=== PATIENT | female | born 1995 | race Hispanic/Latino ===

== ENCOUNTER 2017-08-29 21:42 | Emergency (ER) | payer MEDICAID ==
[2017-08-29] MEDS ORDERED: ACETAMINOPHEN 325 MG TAB ONE (22:16)
[2017-08-29] MEDS ORDERED: ONDANSETRON ODT 4 MG TAB ONE (22:16)
[2017-08-29 22:27] LABS: APPEARANCE,URINE Clear (CLEAR); BILIRUBIN,URINE Negative (NEGATIVE); COLOR,URINE Yellow (YELLOW); GLUCOSE, URINE (UA) Negative (NEGATIVE); KETONES,URINE Negative (NEGATIVE); LEUKOCYTE ESTERASE ,URINE Trace (NEGATIVE); NITRATE,URINE Negative (NEGATIVE); OCCULT BLOOD,URINE Negative (NEGATIVE); PROTEIN,URINE Negative (NEGATIVE); UROBILINOGEN,URINE 0.2 mg/dL (0.2-1.0)
[2017-08-29 22:38] LABS: BACTERIA,URINE None Seen /HPF (None Seen); MUCUS,URINE None Seen LPF (None Seen); RBC,URINE None Seen /HPF (0-1); SQUAMOUS EPITHELIAL CELL,UR None Seen /LPF (0-2); WBC,URINE 0-1 /HPF (0-1)
[2017-08-29 22:51] LABS: RAPID GROUP A STREP NEGATIVE (NEGATIVE)
[2017-08-29] MEDS ORDERED: SODIUM CHLORIDE 0.9% 1000ML 1,000 ML IV ONE (23:10)
[2017-08-29 23:15] LABS: BASOPHILS % (AUTO) 0.5 % (0.0-5.0); EOSINOPHILS % (AUTO) 3.9 % (0.0-8.0); HEMATOCRIT 34.1 % (36-48); LYMPHOCYTES % (AUTO) 19.3 % (21.0-51.0); MEAN CORPUSCULAR HEMOGLOBIN 31.8 pg (27.0-33.0); MEAN CORPUSCULAR VOLUME 90.9 fL (79-99); MONOCYTES % (AUTO) 6.8 % (3.0-13.0); NEUTROPHILS % (AUTO) 69.5 % (40.0-77.0); PLATELET COUNT (AUTO) 215 K/uL (130-400); RED BLOOD CELL COUNT(AUTO) 3.75 MIL/uL (4.00-5.50); RED CELL DISTRIBUTION WIDTH 13.1 % (11.0-15.5); WHITE BLOOD COUNT (AUTO) 10.1 K/uL (4.8-10.8)
[2017-08-29 23:33] LABS: CREATININE 0.5 mg/dL (0.5-1.5); POTASSIUM 3.2 mmol/L (3.5-5.1)
[2017-08-29] MEDS ORDERED: POTASSIUM BICARB/CIT AC 25 MEQ TABLET.EFF ONE (23:50)
== END 2017-08-30 00:40 | disposition home or self-care (01) ==
LOC: EDH 21:42
DX: O26.892 Other specified pregnancy related conditions, second trimester (principal); B34.9 Viral infection, unspecified; E87.6 Hypokalemia; Z3A.18 18 weeks gestation of pregnancy
CPT/HCPCS: 36415; 80048; 81001; 85025; 87804 ×2; 87880; 96360; 99282; 99284; J7030; 96361

== ENCOUNTER 2017-08-30 20:40 | Emergency (ER) | payer MEDICAID | END 2017-08-30 21:44 | disposition home or self-care (01) | LOC: EDH 20:40 | DX: O99.512 Diseases of the respiratory system complicating pregnancy, second trimester (principal); J06.9 Acute upper respiratory infection, unspecified; Z3A.18 18 weeks gestation of pregnancy ==

== ENCOUNTER 2017-09-24 14:26 | Observation (INO) | payer MEDICAID ==
[2017-09-24 15:08] LABS: APPEARANCE,URINE Cloudy (CLEAR); BILIRUBIN,URINE Negative (NEGATIVE); COLOR,URINE Yellow (YELLOW); GLUCOSE, URINE (UA) Negative (NEGATIVE); KETONES,URINE Negative (NEGATIVE); LEUKOCYTE ESTERASE ,URINE Trace (NEGATIVE); NITRATE,URINE Negative (NEGATIVE); OCCULT BLOOD,URINE Large (NEGATIVE); PROTEIN,URINE Negative (NEGATIVE); UROBILINOGEN,URINE 0.2 mg/dL (0.2-1.0)
[2017-09-24] MEDS ORDERED: LACTATED RINGERS 1000ML IV SCH (15:30)
[2017-09-24 15:35] LABS: AMORPHOUS SEDIMENT,UR Few /LPF (None Seen); BACTERIA,URINE Few /HPF (None Seen); MUCUS,URINE Few LPF (None Seen)
[2017-09-24 15:36] LABS: RBC,URINE None Seen /HPF (0-1)
[2017-09-24] MEDS ORDERED: LACTATED RINGERS 1000ML 1,000 ML IV SCH (15:45)
== END 2017-09-24 16:55 | disposition home or self-care (01) ==
LOC: EDH 14:26 → LDH 14:27
PROVIDERS: ADMIT Obstetrics & Gynecology; ATTEND Obstetrics & Gynecology
DX: O26.892 Other specified pregnancy related conditions, second trimester (principal); M54.9 Dorsalgia, unspecified; O46.92 Antepartum hemorrhage, unspecified, second trimester; Z3A.22 22 weeks gestation of pregnancy
CPT/HCPCS: 81001; 99285; G0378 ×2; J7120; 96360

== ENCOUNTER 2017-10-20 23:27 | Inpatient (IN) | payer MEDICAID ==
[~2017-10-20] VITALS: Ht 154.9 cm; Wt 78.9 kg
[2017-10-21 00:16] LABS: APPEARANCE,URINE Clear (CLEAR); BILIRUBIN,URINE Negative (NEGATIVE); COLOR,URINE Yellow (YELLOW); GLUCOSE, URINE (UA) Negative (NEGATIVE); KETONES,URINE Negative (NEGATIVE); LEUKOCYTE ESTERASE ,URINE Negative (NEGATIVE); NITRATE,URINE Negative (NEGATIVE); OCCULT BLOOD,URINE Negative (NEGATIVE); PROTEIN,URINE Negative (NEGATIVE)
[2017-10-21] MEDS ORDERED: LACTATED RINGERS 1000ML 1,000 ML IV ONE ×2 (00:27→08:04)
[2017-10-21] MEDS ORDERED: AMPICILLIN 2GM+NS 100ML 100 ML IV ONE (00:27)
[2017-10-21] MEDS ORDERED: CELESTONE SOLUSPAN 6 MG/ML 5ML VIAL ONE (00:27)
[2017-10-21] MEDS ORDERED: MAGNESIUM 4GM PREMIX 100ML 100 ML IV ONE (00:27)
[2017-10-21] MEDS ORDERED: MAGNESIUM SULFATE 1,000 ML IV ONE (00:28)
[2017-10-21] MEDS ORDERED: MAGNESIUM SULFATE 1,000 ML IV SCH (00:45)
[2017-10-21] MEDS ORDERED: MAGNESIUM SULFATE 1,000 ML IV STA (00:45)
[2017-10-21] MEDS ORDERED: PHARMACY COMMUNICATION MISC SCH ×2 (00:45→01:30)
[2017-10-21] MEDS ORDERED: MAGNESIUM 4GM PREMIX 100ML 100 ML IV SCH ×2 (01:15→03:15)
[2017-10-21] MEDS ORDERED: AMPICILLIN 2GM+NS 100ML 100 ML IV SCH (01:15)
[2017-10-21] MEDS ORDERED: CALCIUM GLUCONATE 1 GM/10 ML VIAL IV PRN ×2 (01:15→03:15)
[2017-10-21] MEDS: LACTATED RINGERS 1000ML 1,000 ML IV PRN ×2 (01:52→01:54)
[2017-10-21] MEDS ORDERED: CELESTONE SOLUSPAN 6 MG/ML 5ML VIAL IM SCH (02:00)
[2017-10-21] MEDS ORDERED: LACTATED RINGERS 1000ML 1,000 ML IV PRN (03:04)
[2017-10-21 03:30] LABS: AMPHET/METH SCREEN,URINE NEGATIVE (NEGATIVE); BARBITURATE SCREEN, URINE NEGATIVE (NEGATIVE); BENZODIAZEPINES SCREEN,URINE NEGATIVE (NEGATIVE); CANNABINOID SCREEN,URINE NEGATIVE (NEGATIVE); COCAINE SCREEN,URINE NEGATIVE (NEGATIVE); OPIATE SCREEN,URINE NEGATIVE (NEGATIVE); PHENCYCLIDINE SCREEN,URINE NEGATIVE (NEGATIVE)
[2017-10-21 04:56] LABS: HEMATOCRIT 30.3 % (36-48); MEAN CORPUSCULAR HEMOGLOBIN 32.3 pg (27.0-33.0); MEAN CORPUSCULAR HGB CONC 34.8 g/dL (32.0-36.0); PLATELET COUNT (AUTO) 237 K/uL (130-400); RED BLOOD CELL COUNT(AUTO) 3.26 MIL/uL (4.00-5.50); RED CELL DISTRIBUTION WIDTH 12.7 % (11.0-15.5); WHITE BLOOD COUNT (AUTO) 16.4 K/uL (4.8-10.8)
[2017-10-21] MEDS ORDERED: BERACTANT 100MG/4ML IH ONE (05:23)
[2017-10-21] MEDS: CELESTONE SOLUSPAN 6 MG/ML 5ML VIAL IM SCH ×2 (06:00→18:00)
[2017-10-21] MEDS ORDERED: MIDAZOLAM HCL 1 MG/ML 2ML VIAL ONE ×2 (06:33→06:57)
[2017-10-21] MEDS ORDERED: ROCURONIUM 10MG/1ML SYR 10 MG/ML ML ONE (06:33)
[2017-10-21] MEDS ORDERED: PROPOFOL 10 MG/ML 20ML VIAL IV ONE (06:33)
[2017-10-21] MEDS ORDERED: DEXAMETHASONE SOD PHOSPHATE 10MG/ML 1ML VIAL ONE ×2 (06:33→07:35)
[2017-10-21] MEDS ORDERED: LIDOCAINE PF 2% 5ML ABBOJECT ONE (06:33)
[2017-10-21] MEDS ORDERED: GLYCOPYRROLATE 0.2 MG/ML 5 ML VIAL ONE (06:33)
[2017-10-21] MEDS ORDERED: NEOSTIGMINE 5MG/5ML SYR IV ONE (06:33)
[2017-10-21] MEDS ORDERED: FENTANYL CITRATE PF 50 MCG/1 ML 2ML VIAL ONE ×3 (06:33→07:34)
[2017-10-21] MEDS ORDERED: ONDANSETRON HCL 4 MG/2 ML VIAL ONE ×2 (06:33→07:35)
[2017-10-21] MEDS ORDERED: SUCCINYLCHOLINE 200MG/10ML SYR ONE (06:33)
[2017-10-21] MEDS ORDERED: CEFAZOLIN SODIUM 1 GM VIAL ONE (06:37)
[2017-10-21] MEDS ORDERED: CEFAZOLIN SODIUM 1 GM VIAL IVP PRN (06:45)
[2017-10-21] MEDS ORDERED: LACTATED RINGERS 1000ML 1,000 ML IV SCH (06:45)
[2017-10-21] MEDS ORDERED: OXYTOCIN 10 UNIT/1ML 10ML VIAL ONE (07:35)
[2017-10-21] MEDS ORDERED: OXYTOCIN 10 USP UNITS/ML ONE ×2 (08:05→11:15)
[2017-10-21] MEDS ORDERED: CALDOLOR 800MG+NS 250ML 250 ML IV ONE ×2 (08:22→16:03)
[2017-10-21] MEDS ORDERED: PROMETHAZINE HCL 25 MG/ML 1ML AMPULE IM ONE (08:23)
[2017-10-21] MEDS ORDERED: MEPERIDINE-PF 25 MG/ML SYG ONE (08:24)
[2017-10-21 09:55] VITALS: BP 116/68
[2017-10-21] MEDS ORDERED: HEPARIN SOD 1000 UNIT/ML IV ONE (10:00)
[2017-10-21] MEDS ORDERED: SODIUM CHLORIDE 0.9% 50 ML IV ONE (10:00)
[2017-10-21] MEDS ORDERED: PNV1TABL17 PO (10:26)
[2017-10-21] MEDS ORDERED: OXYTOCIN-LR 20 UNITS/1000 ML 1,000 ML IV PRN (10:59)
[2017-10-21] MEDS ORDERED: SODIUM CHLORIDE 0.9% 10 ML VIAL IVP PRN (11:00)
[2017-10-21 11:30] VITALS: BP 117/73
[2017-10-21] MEDS ORDERED: DiphenhydrAMINE HCL 50 MG/ML VIAL IVP PRN (11:45)
[2017-10-21] MEDS ORDERED: METOCLOPRAMIDE 10 MG/2 ML VIAL IVP PRN (11:45)
[2017-10-21] MEDS ORDERED: PROMETHAZINE HCL 25 MG/ML 1ML AMPULE IM PRN (11:45)
[2017-10-21] MEDS ORDERED: ONDANSETRON HCL 4 MG/2 ML VIAL IVP PRN ×2 (11:45)
[2017-10-21] MEDS ORDERED: ONDANSETRON HCL 4 MG/2 ML 8 MG in SODIUM CHLORIDE 0.9% 50 ML IVP NR (11:45)
[2017-10-21] MEDS ORDERED: EPHEDRINE SULFATE 50 MG/ML AMPULE IVP PRN (11:45)
[2017-10-21] MEDS ORDERED: HYDROCODONE/ACETAMINOPHEN 5/325 MG TAB PO PRN ×2 (11:45)
[2017-10-21] MEDS ORDERED: MORPHINE SULFATE 2 MG/ML 1ML SYG IVP PRN (11:45)
[2017-10-21] MEDS ORDERED: NALOXONE HCL 0.4 MG/1 ML ML IVP PRN ×2 (11:45)
[2017-10-21] MEDS: MEPERIDINE-PF 75 MG/ML SYG IM PRN ×2 (12:13→20:06)
[2017-10-21] MEDS: PROMETHAZINE HCL 25 MG/ML 1ML AMPULE IM PRN ×2 (12:13→20:06)
[2017-10-21 14:20] LABS: RAPID PLASMA REAGIN NONREACTIVE (NONREACTIVE)
[2017-10-21 15:47] VITALS: BP 110/69
[2017-10-21] MEDS: CALDOLOR 800MG+NS 250ML 250 ML IV SCH (16:23)
[2017-10-21] MEDS: AMPICILLIN 2GM+NS 100ML 100 ML IV SCH (18:45)
[2017-10-21 19:39] VITALS: BP 110/63
[2017-10-21] MEDS: DEXTROSE 5 %-0.45 % NACL 1,000 ML IV PRN (20:06)
[2017-10-21 23:33] VITALS: BP 115/75
[2017-10-22] VITALS (7 sets, daily range): BP systolic 101–123; BP diastolic 56–79
[2017-10-22] MEDS: CALDOLOR 800MG+NS 250ML 250 ML IV SCH (01:15)
[2017-10-22] MEDS: DEXTROSE 5 %-0.45 % NACL 1,000 ML IV PRN ×2 (04:34→11:29)
[2017-10-22] MEDS: PROMETHAZINE HCL 25 MG/ML 1ML AMPULE IM PRN (04:47)
[2017-10-22] MEDS: MEPERIDINE-PF 75 MG/ML SYG IM PRN (04:48)
[2017-10-22 06:15] LABS: HEPATITIS Bs ANTIGEN SCREEN P Negative (Negative)
[2017-10-22 06:59] LABS: HEMATOCRIT 22.2 % (36-48); MEAN CORPUSCULAR HEMOGLOBIN 33.4 pg (27.0-33.0); MEAN CORPUSCULAR HGB CONC 35.5 g/dL (32.0-36.0); MEAN CORPUSCULAR VOLUME 94.2 fL (79-99); PLATELET COUNT (AUTO) 211 K/uL (130-400); RED BLOOD CELL COUNT(AUTO) 2.35 MIL/uL (4.00-5.50); RED CELL DISTRIBUTION WIDTH 12.9 % (11.0-15.5); WHITE BLOOD COUNT (AUTO) 16.3 K/uL (4.8-10.8)
[2017-10-22] MEDS ORDERED: HYDROCODONE/ACETAMINOPHEN 5/325 MG TAB PO PRN (08:30)
[2017-10-22] MEDS ORDERED: MEASLES/MUMPS/RUBELLA VACCINE, LIVE 0.5 ML/VIAL SQ SCH (08:30)
[2017-10-22] MEDS ORDERED: DIPHENHYDRAMINE HCL 25 MG CAPSULE PO PRN (08:30)
[2017-10-22] MEDS ORDERED: LANOLIN 30GM OINTMENT TP PRN (08:30)
[2017-10-22] MEDS ORDERED: DIPH,PERTUSS(ACELL),TET VAC/PF 0.5 ML VIAL IM SCH (08:30)
[2017-10-22] MEDS ORDERED: ACETAMINOPHEN EXTRA STRENGTH 500 MG TABLET PO PRN (08:30)
[2017-10-22] MEDS ORDERED: IBUPROFEN 800 MG TAB ONE (08:38)
[2017-10-22] MEDS: DOCUSATE SODIUM 100 MG CAP PO SCH ×2 (08:44→21:20)
[2017-10-22] MEDS: SIMETHICONE 80 MG TAB.CHEW PO PRN ×4 (08:45→21:20)
[2017-10-22] MEDS: IBUPROFEN 800 MG TAB PO SCH ×2 (08:46→17:39)
[2017-10-22] MEDS: ACETAMINOPHEN-CODEINE 300/30MG TAB PO PRN ×3 (08:49→21:20)
[2017-10-22] MEDS: AMPICILLIN 2GM+NS 100ML 100 ML IV SCH (12:45)
[2017-10-22] MEDS: BISACODYL 10 MG SUPP.RECT RC PRN (13:31)
[2017-10-23 03:09] VITALS: BP 113/74
[2017-10-23] MEDS: IBUPROFEN 800 MG TAB PO SCH ×2 (03:11→11:11)
[2017-10-23] MEDS: BISACODYL 10 MG SUPP.RECT RC PRN (03:17)
[2017-10-23 07:32] VITALS: BP 112/69
[2017-10-23] MEDS: DOCUSATE SODIUM 100 MG CAP PO SCH (08:51)
[2017-10-23] MEDS: SIMETHICONE 80 MG TAB.CHEW PO PRN (08:51)
[2017-10-23] MEDS: ACETAMINOPHEN-CODEINE 300/30MG TAB PO PRN (08:51)
[2017-10-23 11:20] VITALS: BP 120/77
[2017-10-23 15:35] VITALS: BP 118/77
== END 2017-10-23 17:40 | disposition home or self-care (01) | DRG 540 ==
LOC: EDH 23:27 → OBSVTOIN 10-21 00:02 → LDH 10-21 00:02 → WSH 10-21 09:54
PROVIDERS: ADMIT Obstetrics & Gynecology; ATTEND Obstetrics & Gynecology
PROC: 3E0234Z Introduction of Serum, Toxoid and Vaccine into Muscle, Percutaneous Approach (ICD-10-PCS; 2017-10-21)
PROC: 3E0134Z Introduction of Serum, Toxoid and Vaccine into Subcutaneous Tissue, Percutaneous Approach (ICD-10-PCS; 2017-10-21)
PROC: 10D00Z0 Extraction of Products of Conception, High, Open Approach (ICD-10-PCS; principal; 2017-10-21 06:50)
DX: O32.8XX0 Maternal care for other malpresentation of fetus, not applicable or unspecified (principal); O60.12X0 Preterm labor second trimester with preterm delivery second trimester, not applicable or unspecified; Z37.0 Single live birth; Z3A.25 25 weeks gestation of pregnancy
CPT/HCPCS: 36415; 59510; 76805; 80305; 81003; 83735; 85027; 86592; 86701; 86850; 86900; 86901; 87070; 87076; 87077; 87340; 87390; 90707; 90715; A4344; A4450; A4606; J0290; J0330; J0690; J0702; J1100; J1644; J1741; J2001; J2175; J2250; J2405; J2550; J2590; J2704; J2710; J3010; J3475; J3490; J7120

== ENCOUNTER 2017-11-04 06:21 | Emergency (ER) | payer MEDICAID ==
[~2017-11-04 06:21] MED LIST: PNV1TABL17 PO
[2017-11-04 06:58] LABS: BASOPHILS % (AUTO) 1.5 % (0.0-5.0); EOSINOPHILS % (AUTO) 1.1 % (0.0-8.0); LYMPHOCYTES % (AUTO) 27.8 % (21.0-51.0); MEAN CORPUSCULAR HEMOGLOBIN 30.8 pg (27.0-33.0); MEAN CORPUSCULAR HGB CONC 33.8 g/dL (32.0-36.0); MEAN CORPUSCULAR VOLUME 91.2 fL (79-99); MONOCYTES % (AUTO) 4.4 % (3.0-13.0); NEUTROPHILS % (AUTO) 65.2 % (40.0-77.0); PLATELET COUNT (AUTO) 523 K/uL (130-400); RED BLOOD CELL COUNT(AUTO) 3.19 MIL/uL (4.00-5.50); RED CELL DISTRIBUTION WIDTH 13.1 % (11.0-15.5)
[2017-11-04] MEDS ORDERED: ONDANSETRON HCL MDV 20ML 2 MG/ML VIAL ONE (07:18)
[2017-11-04 07:20] LABS: CREATININE 0.6 mg/dL (0.5-1.5); POTASSIUM 3.7 mmol/L (3.5-5.1)
[2017-11-04 07:27] LABS: BILIRUBIN,TOTAL 0.5 mg/dL (0.2-1.0)
[2017-11-04 08:01] LABS: HCG,QUAL RESULT NEGATIVE (NEGATIVE)
[2017-11-04 08:05] LABS: AMPHET/METH SCREEN,URINE NEGATIVE (NEGATIVE); BARBITURATE SCREEN, URINE NEGATIVE (NEGATIVE); BENZODIAZEPINES SCREEN,URINE NEGATIVE (NEGATIVE); CANNABINOID SCREEN,URINE NEGATIVE (NEGATIVE); COCAINE SCREEN,URINE NEGATIVE (NEGATIVE); OPIATE SCREEN,URINE NEGATIVE (NEGATIVE); PHENCYCLIDINE SCREEN,URINE NEGATIVE (NEGATIVE)
[2017-11-04 08:23] LABS: APPEARANCE,URINE CLEAR (CLEAR); BILIRUBIN,URINE NEGATIVE (NEGATIVE); COLOR,URINE YELLOW (YELLOW); GLUCOSE, URINE (UA) NEGATIVE (NEGATIVE); KETONES,URINE NEGATIVE (NEGATIVE); LEUKOCYTE ESTERASE ,URINE TRACE (NEGATIVE); NITRATE,URINE NEGATIVE (NEGATIVE); OCCULT BLOOD,URINE LARGE (NEGATIVE); PH,URINE 6.5 (5.0-8.0); PROTEIN,URINE TRACE (NEGATIVE)
[2017-11-04 08:24] LABS: BACTERIA,URINE Rare /HPF (None Seen); MUCUS,URINE Few LPF (None Seen); RBC,URINE 0-1 /HPF (0-1); SQUAMOUS EPITHELIAL CELL,UR Rare /HPF (0-2); WBC,URINE 0-1 /HPF (0-1)
[2017-11-04] MEDS ORDERED: IOPAMIDOL-370 75 ML VIAL IV ONE (09:06)
== END 2017-11-04 09:49 | disposition home or self-care (01) ==
LOC: EDH 06:21
DX: R06.00 Dyspnea, unspecified (principal); R07.9 Chest pain, unspecified
CPT/HCPCS: 36415; 71045; 71275; 80053; 80305; 81001; 81025; 84702; 85025; 85378; 93005; 96374; 99285; Q9967

== ENCOUNTER 2018-08-20 01:48 | Observation (INO) | payer MEDICAID, OTHER ==
[~2018-08-20] VITALS: Ht 154.9 cm; Wt 72.6 kg
[2018-08-20] VITALS (8 sets, daily range): BP systolic 93–126; BP diastolic 46–75
[2018-08-20 02:18] LABS: BASOPHILS % (AUTO) 0.4 % (0.0-5.0); EOSINOPHILS % (AUTO) 0.3 % (0.0-8.0); MEAN CORPUSCULAR HEMOGLOBIN 28.4 pg (27.0-33.0); MEAN CORPUSCULAR HGB CONC 32.9 g/dL (32.0-36.0); MEAN CORPUSCULAR VOLUME 86.1 fL (79-99); MONOCYTES % (AUTO) 3.9 % (3.0-13.0); NEUTROPHILS % (AUTO) 81.4 % (40.0-77.0); PLATELET COUNT (AUTO) 263 K/uL (130-400); RED BLOOD CELL COUNT(AUTO) 4.18 MIL/uL (4.00-5.50); WHITE BLOOD COUNT (AUTO) 13.8 K/uL (4.8-10.8)
[2018-08-20 02:26] LABS: CREATININE 0.5 mg/dL (0.5-1.5); POTASSIUM 3.6 mmol/L (3.5-5.1)
[2018-08-20] MEDS ORDERED: ACETAMINOPHEN EXTRA STRENGTH 500 MG TABLET ONE (03:36)
[2018-08-20] MEDS ORDERED: ONDANSETRON ODT 4 MG TAB ONE (03:36)
[2018-08-20] MEDS ORDERED: LACTATED RINGERS 1000ML 1,000 ML IV ONE (06:10)
[2018-08-20] MEDS ORDERED: OXYTOCIN-LR 20 UNITS/1000 ML 1,000 ML IV SCH (06:45)
[2018-08-20] MEDS ORDERED: PROPOFOL 10 MG/ML 20ML VIAL IV ONE (13:39)
--- NOTE | 2018-08-20 13:40 | NUR ---
PT TAKEN BY BED TO L&D FOR D&C. PT IN STABLE CONDITION.
[2018-08-20] MEDS ORDERED: MIDAZOLAM HCL 1 MG/ML 2ML VIAL ONE (13:41)
[2018-08-20] MEDS ORDERED: FENTANYL CITRATE PF 50 MCG/1 ML 2ML VIAL ONE (13:45)
[2018-08-20] MEDS ORDERED: ONDANSETRON HCL 4 MG/2 ML VIAL ONE (13:45)
[2018-08-20] MEDS ORDERED: LIDOCAINE PF 2% 5ML ABBOJECT ONE (13:45)
[2018-08-20] MEDS ORDERED: MEPERIDINE-PF 25 MG/ML SYG ONE (14:30)
--- NOTE | 2018-08-20 18:15 | NUR ---
DISCHARGE PT LEFT UNIT VIA WHEELCHAIR, ACCOMPANIED BY SIGNIFICANT OTHER. DENIED PAIN AND HAD NO COMPLAINTS. TRANSPORTED BY PERSONAL VEHICLE.
== END 2018-08-20 18:15 | disposition home or self-care (01) ==
LOC: EDH 01:48 → EDHIP 01:49 → WSH 07:30
PROVIDERS: ADMIT Obstetrics & Gynecology; ATTEND Obstetrics & Gynecology
DX: O03.4 Incomplete spontaneous abortion without complication (principal); Z3A.01 Less than 8 weeks gestation of pregnancy; Z23 Encounter for immunization
CPT/HCPCS: 36415; 59812; 76801; 80048; 84702; 84703; 85025; 88305 ×2; 99284; A4351; G0008; G0378 ×16; J2001; J2175; J2250; J2405; J2704; J3010; J7030; J7120; Q2035